=== PATIENT | male | born 1965 | race Caucasian/White ===

== ENCOUNTER 2021-10-15 20:15 | Emergency (ER) | payer OTHER ==
[2021-10-15 20:24] VITALS: BP 119/78; PULSE 61; TEMP 98.5; BMI 27.8
[2021-10-15] MEDS ORDERED: KETOROLAC TROMETHAMINE 30 MG/1 ML VIAL IVPUSH ONE (21:52)
[2021-10-15] MEDS ORDERED: SODIUM CHLORIDE 0.9% 500 ML INFUS.BAG IV ONE (21:52)
[2021-10-15] MEDS ORDERED: KETOROLAC TROMETHAMINE 30 MG/1 ML VIAL ONE (22:49)
[2021-10-15 23:05] LABS: BASO % 1.1 % (0-2.0); EOS % 4.6 % (0-4.5); HEMATOCRIT 38.5 % (35.4-49); HEMOGLOBIN 12.8 GM/dL (11.7-16.9); LYMPH % 39.8 % (8-40); MCH 28.1 pg (25.7-33.7); MCHC 33.2 g/dl (32.0-35.9); MEAN CELL VOLUME 84.5 fl (80-96); MEAN PLT VOLUME 8.7 fl (7.5-11.1); MONO % 8.2 % (3.8-10.2); NEUT % 46.3 % (42.8-82.8); PLATELET COUNT 186 10^3/uL (134-434); RBC 4.55 M/mm3 (4.00-5.60); RDW 14.6 % (11.9-15.9); WHITE BLOOD COUNT 7.3 K/mm3 (4.0-10.0)
[2021-10-15 23:29] LABS: CALCIUM 9.2 mg/dL (8.5-10.1)
[2021-10-15 23:30] LABS: BLOOD UREA NITROGEN 18.6 mg/dL (7-18)
[2021-10-15 23:33] LABS: CREATININE 1.3 mg/dL (0.55-1.3)
== END 2021-10-16 01:47 | disposition home or self-care (01) ==
LOC: JER 20:15
PROC: 3E0333Z Introduction of Anti-inflammatory into Peripheral Vein, Percutaneous Approach (ICD-10-PCS; principal; 2021-10-15)
DX: E16.2 Hypoglycemia, unspecified (principal); R51.9 Headache, unspecified; G89.29 Other chronic pain
CPT/HCPCS: 36415; 70450-TC; 80048; 82962; 85025; 99284-25